=== PATIENT | male | born 1965 | race Caucasian/White ===

== ENCOUNTER 2021-01-14 16:31 | Emergency (ER) | payer MEDICAID, OTHER ==
[~2021-01-14] VITALS: Ht 182.8 cm; Wt 174.1 kg
[2021-01-14 16:31] VITALS: BP 0/0
[2021-01-14] MEDS ORDERED: EPINEPHrine 0.1 MG/ML 10 ML (HOSPIRA) SYR IJ ONE (16:37)
--- NOTE | 2021-01-14 16:56 | ED CPR ---
HPI-CPR General Chief Complaint: Code Blue Stated Complaint: CODE BLUE Source of Information: Patient, EMS, Detention Records Exam Limitations: Physical Impairments (Orotracheally intubated) History of Present Illness Date Seen by Provider: Jan 14, 2021 Time Seen by Provider: 16:31 Initial Comments Patient to the ER by EMS from [facility] after being worked for 34 minutes on a CODE BLUE with multiple doses of epinephrine. See nursing notes. LMA in place oxygenating 100%. Blood sugar 200. Patient had a witnessed arrest in front of staff and they began CPR immediately. EMS reports all they ever got was PEA. Allergies and Home Medications Allergies Coded Allergies: No Known Drug Allergies (Unverified , 01/14/21) Patient Home Medication List Home Medication List Reviewed: Yes Review of Systems Review of Systems Constitutional: see HPI (Patient is unable to give a meaningful review of systems as he is in cardiopulmonary arrest) Physical Exam Vital Signs Capillary Refill : Height, Weight, BMI Height: '" Weight: lbs. oz. kg; BMI Method: General Appearance: Obese (Morbid), Severe Distress HEENT: PERRL/EOMI (3 mm, fixed), Moist Mucous Membranes Neck: Normal Inspection, Supple Respiratory: Other (LMA in place and Ambu bag with oxygen at 100%) Cardiovascular: Other (CPR chest compressions were being given) Gastrointestinal: No Organomegaly, Soft Extremity: Slow Capillary Refill, Other (Mottled, cyanotic head trunk and upper extremities) Neurologic/Psychiatric: Other (GCS 3 T) Skin: Cyanosis, Damp, Mottled Progress/Results/Core Measures Results/Orders Lab Results Laboratory Tests Test 01/14/21 17:30 Range/Units My Orders Orders - NILSA LEO Epinephrine Emergency Syringe (Epinephr (01/14/21 16:37) Covid 19 Inhouse Test (01/14/21 17:29) Progress Progress Note : Time: 18:12 Progress Note Unwitnessed arrest post 37 minutes of resuscitative efforts with another dose of epinephrine after arrival. Patient's blood sugar had been addressed. Patient has a significant burden of disease at baseline and it was determined that resuscitative efforts were futile at this time. Low voltage PEA noted on the monitor with no cardiac tones. Time of was called at 1639. Covid swab was obtained Departure Impression Primary Impression: Cardiopulmonary arrest Disposition: 20 Condition: Departure-Patient Inst. Decision time for Depature: 16:40 Referrals: MERLIN CHAVES MD (PCP/Family) Primary Care Physician Patient Instructions: Sudden Cardiac Arrest Copy Copies To 1: JOCELYN ARMIJO DO; MERLIN CHAVES MD, TITUS J Jan 14, 2021 16:56
== END 2021-01-14 20:30 | disposition expired ==
LOC: ER 16:36
DX: I46.9 Cardiac arrest, cause unspecified (principal); E66.01 Morbid (severe) obesity due to excess calories
CPT/HCPCS: 87636; 99283